=== PATIENT | female | born 1950 | race Caucasian/White ===

== ENCOUNTER 2019-11-18 14:01 | Observation (INO) ==
[2019-11-18 14:55] LABS: Bilirubin,Urine Negative (Negative); Blood,Urine Large (Negative); Clarity,Urine Cloudy (Clear); Color,Urine Red (Yellow); Glucose,Urine (UA) Normal (Normal); Ketones,Urine Negative (Negative); Leukocyte Esterase,Urine Large (Negative); Nitrite,Urine Negative (Negative); PH,Urine 5.5 pH Units (5.0-8.0); Protein,Urine 100 mg/dL (Neg-Trace); Specific Gravity,Urine 1.013 (1.010-1.025); Urobilinogen,Urine Normal (Normal)
[2019-11-18 14:57] LABS: Basophils % 0.6 %; Eosinophils # 0.2 K/mcL (0.0-0.6); Eosinophils % 4.6 %; Hematocrit 28.7 % (35.3-44.9); Hemoglobin 8.4 g/dL (11.5-15.4); Immature Granulocytes % 3.4 % (0-4); Lymphocytes # 0.6 K/mcL (0.6-4.6); Lymphocytes % 11.5 %; Mean Corpuscular HGB Conc 29.3 g/dL (31.6-35.5); Mean Platelet Volume 9.6 fL (9.4-12.4); Monocytes # 0.4 K/mcL (0.0-1.3); Monocytes % 7.6 %; Neutrophils # 3.8 K/mcL (1.6-8.9); Platelet Count 222 K/mcL (140-400); Red Cell Distribution Width 15.8 % (11.5-14.5); Segmented Neutrophils % 72.3 %; White Blood Count 5.2 K/mcL (4.3-11.1)
[2019-11-18 14:57] LABS: Squamous Epithelial Cell,Urine Moderate per lpf (None-Few); WBC,Urine TNTC per hpf (0-3)
[2019-11-18 14:59] LABS: Bacteria,Urine Moderate per hpf (None-Few); RBC,Urine TNTC per hpf (0-3)
[2019-11-18 15:08] LABS: INR 1.3; Prothrombin Time 15.1 Seconds (9.4-12.1)
[2019-11-18] MEDS ORDERED: Ondansetron 4 MG/2 ML VIAL IVP PRN (15:12)
[2019-11-18] MEDS ORDERED: Naloxone 0.4 MG/ML INJ IVP PRN ×2 (15:12→15:33)
[2019-11-18] MEDS ORDERED: 0.9 % Sodium Chloride 250 ML IVC PRN (15:21)
[2019-11-18] MEDS ORDERED: Heparin 1,000 UNITS/500 mL 500 ML ONE (15:24)
[2019-11-18 15:30] LABS: Calcium 9.7 mg/dL (8.6-10.3); Potassium 4.1 mEq/L (3.5-5.1)
[2019-11-18] MEDS ORDERED: 0.9 % Sodium Chloride 1,000 ML PRIME SCH (15:30)
[2019-11-18] MEDS ORDERED: *HR* Heparin 5,000 UNIT/ML VIAL ONE (15:34)
[2019-11-18 18:48] VITALS: BP 139/78
[2019-11-18 19:11] LABS: Hepatitis B Surface Antibody < 3.10 mIU/mL
[2019-11-18 19:21] LABS: Hepatitis B Surface Antigen Nonreactive (Nonreactive)
== END 2019-11-18 20:22 ==
LOC: EMEROOARM 14:01 → 2ANU 14:01 → CDU 14:01
PROVIDERS: ADMIT Pharmacist; ATTEND Pharmacist

== ENCOUNTER 2020-02-14 23:07 | Inpatient (IN) ==
[2020-02-14] MEDS ORDERED: 0.9 % Sodium Chloride 500 ML IVC ONE (23:23)
[2020-02-14 23:57] LABS: Basophils % 0.2 %; Eosinophils % 0.1 %; Hematocrit 37.7 % (35.3-44.9); Hemoglobin 11.7 g/dL (11.5-15.4); Immature Granulocytes % 0.9 % (0-4); Lymphocytes # 0.5 K/mcL (0.6-4.6); Mean Corpuscular Hemoglobin 29.3 pg (28.0-33.3); Mean Corpuscular Volume 94.5 fL (83.0-100.0); Mean Platelet Volume 10.2 fL (9.4-12.4); Monocytes # 0.4 K/mcL (0.0-1.3); Monocytes % 4.3 %; Neutrophils # 7.5 K/mcL (1.6-8.9); Platelet Count 153 K/mcL (140-400); Red Blood Count 3.99 M/mcL (3.82-4.97); Red Cell Distribution Width 17.1 % (11.5-14.5); Segmented Neutrophils % 88.5 %; White Blood Count 8.4 K/mcL (4.3-11.1)
[2020-02-15] LABS: INR 1.3; Prothrombin Time 15.1 Seconds (9.4-12.1)
[2020-02-15 00:03] LABS: Activated Partial Thrombo Time 35.6 Seconds (26.0-36.0)
[2020-02-15 00:21] LABS: Alanine Aminotransferase 13 Units/L (7-52); Albumin 3.4 g/dL (3.5-5.7); Alkaline Phosphatase 75 Units/L (34-104); Aspartate Amino Transferase 21 Units/L (13-39); BUN/Creatinine Ratio 10 (6-26); Bilirubin,Direct 0.2 mg/dL (0.0-0.2); Bilirubin,Indirect 0.8 mg/dL (0.0-1.0); Blood Urea Nitrogen 42 mg/dL (8-23); Calcium 10.3 mg/dL (8.6-10.3); Carbon Dioxide 25 mEq/L (23-29); Chloride 96 mEq/L (98-107); Globulin 3.4 g/dL (2.4-3.5); Glucose 206 mg/dL (70-105); Magnesium 2.1 mg/dL (1.6-2.6); Osmolality,Calculated 290 (280-300); Phosphorous 4.4 mg/dL (2.7-4.5); Potassium 4.6 mEq/L (3.5-5.1); Sodium 132 mEq/L (136-145); Total Protein 6.8 g/dL (6.4-8.9); Troponin I < 0.03 ng/mL (< 0.04); eGFR For African Americans 13 (> 60); eGFR For Non-African Americans 11 (> 60)
[2020-02-15] MEDS ORDERED: *HR* HYDROcodone/Acet 5/325 mg TABLET PO ONE (00:34)
[2020-02-15 00:45] LABS: ABG Base Excess 1 mEq/L (-2 to 3); ABG HCO3 26 mEq/L (21-27); ABG Oxygen Saturation 90 % (95-98); ABG PCO2 37 mmHg (35-45); ABG PH 7.44 pH Units (7.32-7.45); ABG PO2 57 mmHg (85-104); ABG TCO2 27 mEq/L (20-26)
[2020-02-15 00:58] LABS: Bilirubin,Urine Negative (Negative); Blood,Urine Large (Negative); Clarity,Urine Turbid (Clear); Color,Urine Yellow (Yellow); Glucose,Urine (UA) 100 mg/dL (Normal); Ketones,Urine Negative (Negative); Leukocyte Esterase,Urine Large (Negative); Nitrite,Urine Negative (Negative); PH,Urine 6.5 pH Units (5.0-8.0); Protein,Urine 100 mg/dL (Neg-Trace); Specific Gravity,Urine 1.018 (1.010-1.025); Urobilinogen,Urine Normal (Normal)
[2020-02-15 00:59] LABS: Bacteria,Urine Moderate per hpf (None-Few); RBC,Urine 30-50 per hpf (0-3); Squamous Epithelial Cell,Urine Many per lpf (None-Few); WBC,Urine TNTC per hpf (0-3)
[2020-02-15 01:09] LABS: Hyaline Casts,Urine Few per lpf (None-Few)
[2020-02-15] MEDS ORDERED: cefTRIAXone 1,000 MG in 0.9 % Sodium Chloride Mini Bag 100 ML IVPB ONE (01:13)
[2020-02-15] MEDS ORDERED: Naloxone 0.4 MG/ML INJ IVP PRN (03:46)
[2020-02-15] MEDS ORDERED: Ondansetron ODT 4 MG TAB.RAPDIS SL PRN (03:46)
[2020-02-15] MEDS ORDERED: Bisacodyl 10 MG RECTAL SUPPOSITORY RC PRN (03:48)
[2020-02-15] MEDS ORDERED: Dextrose Gel 15 GM/37.5 ML TUBE PO PRN ×2 (04:04)
[2020-02-15] MEDS ORDERED: D5% in Water 1,000 ML IVC PRN (04:04)
[2020-02-15] MEDS ORDERED: *HR* Dextrose 50 % in Water (Syg) 50 ML SYRINGE IVP PRN (04:04)
[2020-02-15] MEDS: *HR* OxyCODONE Immed Rel 5 MG TABLET PO PRN ×3 (04:31→20:48)
[2020-02-15] MEDS: Sennosides/Docusate Sodium TABLET PO SCH (04:31)
[2020-02-15 04:50] LABS: Basophils % 0.3 %; Eosinophils % 0.1 %; Hematocrit 35.4 % (35.3-44.9); Hemoglobin 10.8 g/dL (11.5-15.4); Immature Granulocytes % 1.1 % (0-4); Lymphocytes # 0.4 K/mcL (0.6-4.6); Lymphocytes % 5.5 %; Mean Corpuscular HGB Conc 30.5 g/dL (31.6-35.5); Mean Corpuscular Hemoglobin 28.9 pg (28.0-33.3); Mean Corpuscular Volume 94.7 fL (83.0-100.0); Mean Platelet Volume 10.6 fL (9.4-12.4); Monocytes # 0.5 K/mcL (0.0-1.3); Monocytes % 5.8 %; Platelet Count 130 K/mcL (140-400); Red Blood Count 3.74 M/mcL (3.82-4.97); Red Cell Distribution Width 17.1 % (11.5-14.5); Segmented Neutrophils % 87.2 %
[2020-02-15] MEDS ORDERED: Vancomycin 2,000 MG/520 ML IV.SOLN IVPB ONE (05:00)
[2020-02-15] MEDS ORDERED: Albuterol Neb 0.63 MG/3 ML VIAL IH PRN (05:00)
[2020-02-15 05:09] LABS: Calcium 9.9 mg/dL (8.6-10.3); Potassium 4.4 mEq/L (3.5-5.1)
[2020-02-15 08:25] LABS: Estimated Average Glucose 166 mg/dl
[2020-02-15 08:29] LABS: Hepatitis B Surface Antibody < 3.10 mIU/mL
[2020-02-15 08:40] LABS: Hepatitis B Surface Antigen Nonreactive (Nonreactive)
[2020-02-15] MEDS: Insulin LISPRO 300 UNITS/3 ML VIAL SQ SCH ×3 (08:48→17:11)
[2020-02-15] MEDS: Piperacillin/Tazobactam 3.375 GM in 0.9 % Sodium Chloride Mini Bag 100 ML IVPB SCH ×3 (08:48→23:40)
[2020-02-15] MEDS: Apixaban 5 MG TABLET PO SCH ×2 (08:50→20:16)
[2020-02-15] MEDS: Furosemide 40 MG TABLET PO SCH (08:50)
[2020-02-15] MEDS: Acetaminophen 325 MG TABLET PO PRN ×2 (09:04→17:23)
[2020-02-15 14:05] LABS: Acinetobacter baumannii by PCR Not Detected (Not Detect); Candida albicans by PCR Not Detected (Not Detect); Candida glabrata by PCR Not Detected (Not Detect); Candida krusei by PCR Not Detected (Not Detect); Candida parapsilosis by PCR Not Detected (Not Detect); Candida tropicalis by PCR Not Detected (Not Detect); Enterobacter cloacae Cmplx PCR Not Detected (Not Detect); Enterobacteriaceae by PCR Not Detected (Not Detect); Enterococcus by PCR Not Detected (Not Detect); Escherichia coli by PCR Not Detected (Not Detect); Klebsiella oxytoca by PCR Not Detected (Not Detect); Klebsiella pneumoniae by PCR Not Detected (Not Detect); Proteus by PCR Not Detected (Not Detect); Pseudomonas aeruginosa by PCR Not Detected (Not Detect); Serratia marcescens by PCR Not Detected (Not Detect); Staphylococcus aureus by PCR DETECTED (Not Detect); Streptococcus agalactiae(B)PCR Not Detected (Not Detect); Streptococcus by PCR Not Detected (Not Detect); Streptococcus pneumoniae PCR Not Detected (Not Detect); Streptococcus pyogenes (A) PCR Not Detected (Not Detect); mecA Methicillin-Resist Gene DETECTED (Not Detect)
[2020-02-15] MEDS: traZODone 50 MG TABLET PO SCH (20:16)
[2020-02-15] MEDS: Melatonin 3 MG TABLET PO SCH (20:16)
[2020-02-15] MEDS: Insulin DETEMIR 100 UNIT/ML X5UNITS SQ SCH (20:23)
[2020-02-16 02:01] LABS: Calcium 9.9 mg/dL (8.6-10.3); Potassium 4.6 mEq/L (3.5-5.1)
[2020-02-16] MEDS: Insulin LISPRO 300 UNITS/3 ML VIAL SQ SCH ×3 (08:00→17:30)
[2020-02-16] MEDS: *HR* OxyCODONE Immed Rel 5 MG TABLET PO PRN ×2 (09:20→17:24)
[2020-02-16] MEDS: Furosemide 40 MG TABLET PO SCH (09:20)
[2020-02-16] MEDS: Apixaban 5 MG TABLET PO SCH ×2 (09:20→21:35)
[2020-02-16] MEDS: Piperacillin/Tazobactam 3.375 GM in 0.9 % Sodium Chloride Mini Bag 100 ML IVPB SCH ×2 (09:20→17:26)
[2020-02-16] MEDS ORDERED: Perflutren Lipid Microsphere 1.3 ML in 0.9 % Sodium Chloride 8.7 ML IVP ONE (09:39)
[2020-02-16] MEDS ORDERED: 0.9 % Sodium Chloride 250 ML IVC ONE (09:59)
[2020-02-16] MEDS ORDERED: Albumin 25% 25gram/100mL 25 GM/100 ML IV.SOLN IVPB SCH (10:00)
[2020-02-16] MEDS ORDERED: Vancomycin 500 MG in 0.9 % Sodium Chloride Mini Bag 100 ML IVPB ONE ×2 (10:22→17:00)
[2020-02-16 10:27] LABS: Calcium 9.8 mg/dL (8.6-10.3); Potassium 5.1 mEq/L (3.5-5.1)
[2020-02-16] MEDS: Methyl Salicylate/Menthol 57 APPL/57 GM TUBE TP PRN ×2 (11:55→22:43)
[2020-02-16] MEDS: Acetaminophen 325 MG TABLET PO PRN ×2 (13:28→21:38)
[2020-02-16] MEDS ORDERED: *HR* HYDROmorphone (PF) 1 MG/ML SYRINGE IVP ONE (14:27)
[2020-02-16] MEDS: Melatonin 3 MG TABLET PO SCH (21:35)
[2020-02-16] MEDS: traZODone 50 MG TABLET PO SCH (21:35)
[2020-02-16] MEDS: Insulin DETEMIR 100 UNIT/ML X5UNITS SQ SCH (21:43)
[2020-02-16] MEDS: Nystatin POWDER 30 GM BOTTLE TP SCH (22:43)
[2020-02-17] MEDS: Piperacillin/Tazobactam 3.375 GM in 0.9 % Sodium Chloride Mini Bag 100 ML IVPB SCH ×2 (00:28→08:05)
[2020-02-17] MEDS: *HR* OxyCODONE Immed Rel 5 MG TABLET PO PRN ×2 (01:34→16:01)
[2020-02-17 02:29] LABS: Hematocrit 31.7 % (35.3-44.9); Hemoglobin 9.8 g/dL (11.5-15.4); Mean Corpuscular HGB Conc 30.9 g/dL (31.6-35.5); Mean Corpuscular Hemoglobin 29.3 pg (28.0-33.3); Mean Corpuscular Volume 94.9 fL (83.0-100.0); Mean Platelet Volume 10.9 fL (9.4-12.4); Platelet Count 118 K/mcL (140-400); Red Blood Count 3.34 M/mcL (3.82-4.97); Red Cell Distribution Width 16.5 % (11.5-14.5); White Blood Count 6.3 K/mcL (4.3-11.1)
[2020-02-17 02:38] LABS: Calcium 9.3 mg/dL (8.6-10.3); Potassium 4.3 mEq/L (3.5-5.1)
[2020-02-17 06:41] LABS: Acinetobacter baumannii by PCR Not Detected (Not Detect); Candida albicans by PCR Not Detected (Not Detect); Candida glabrata by PCR Not Detected (Not Detect); Candida krusei by PCR Not Detected (Not Detect); Candida parapsilosis by PCR Not Detected (Not Detect); Candida tropicalis by PCR Not Detected (Not Detect); Enterobacter cloacae Cmplx PCR Not Detected (Not Detect); Enterobacteriaceae by PCR Not Detected (Not Detect); Enterococcus by PCR Not Detected (Not Detect); Escherichia coli by PCR Not Detected (Not Detect); Klebsiella oxytoca by PCR Not Detected (Not Detect); Klebsiella pneumoniae by PCR Not Detected (Not Detect); Proteus by PCR Not Detected (Not Detect); Pseudomonas aeruginosa by PCR Not Detected (Not Detect); Serratia marcescens by PCR Not Detected (Not Detect); Staphylococcus aureus by PCR DETECTED (Not Detect); Streptococcus agalactiae(B)PCR Not Detected (Not Detect); Streptococcus by PCR Not Detected (Not Detect); Streptococcus pneumoniae PCR Not Detected (Not Detect); Streptococcus pyogenes (A) PCR Not Detected (Not Detect); blaKPC Carbapenem-Resist Gene Not Detected (Not Detect); mecA Methicillin-Resist Gene DETECTED (Not Detect); vanA/B Vancomycin-Resist Genes Not Detected (Not Detect)
[2020-02-17] MEDS ORDERED: *HR* Heparin 10,000 UNIT/10 ML VIAL IV PRN (07:30)
[2020-02-17] MEDS ORDERED: 0.9 % Sodium Chloride 250 ML IVC PRN (07:30)
[2020-02-17] MEDS ORDERED: 0.9 % Sodium Chloride 1,000 ML PRIME SCH (07:30)
[2020-02-17] MEDS ORDERED: 0.9 % Sodium Chloride 1,000 ML ONE (07:33)
[2020-02-17] MEDS: Insulin LISPRO 300 UNITS/3 ML VIAL SQ SCH ×3 (08:01→16:45)
[2020-02-17] MEDS: Nystatin POWDER 30 GM BOTTLE TP SCH ×2 (08:05→20:54)
[2020-02-17] MEDS: Apixaban 5 MG TABLET PO SCH (08:08)
[2020-02-17] MEDS: Acetaminophen 325 MG TABLET PO PRN ×2 (08:13→19:24)
[2020-02-17] MEDS ORDERED: levoFLOXacin 500 MG TABLET PO ONE (13:28)
[2020-02-17 16:02] LABS: Source,Synovial Fluid Right knee
[2020-02-17] MEDS: *HR* Heparin 5,000 UNIT/ML VIAL SQ SCH ×2 (16:02→20:50)
[2020-02-17] MEDS: traZODone 50 MG TABLET PO SCH (20:50)
[2020-02-17] MEDS: Melatonin 3 MG TABLET PO SCH (20:50)
[2020-02-17] MEDS: Insulin DETEMIR 100 UNIT/ML X5UNITS SQ SCH (20:53)
[2020-02-17 20:59] LABS: Source,Synovial Fluid RT KNEE
[2020-02-17 21:01] LABS: Appearance,Synovial Fluid Hazy (Clear-Hazy); Color,Synovial Fluid Straw (Straw)
[2020-02-17 21:11] LABS: Appearance,Synovial Fluid Cloudy (Clear-Hazy); Color,Synovial Fluid Straw (Straw)
[2020-02-17] MEDS ORDERED: *HR* OxyCODONE Immed Rel 5 MG TABLET PO ONE (21:48)
[2020-02-18] MEDS: *HR* Heparin 5,000 UNIT/ML VIAL SQ SCH ×3 (05:41→22:53)
[2020-02-18] MEDS: Sennosides/Docusate Sodium TABLET PO SCH (05:42)
[2020-02-18] MEDS: *HR* OxyCODONE Immed Rel 5 MG TABLET PO PRN ×2 (08:18→17:07)
[2020-02-18] MEDS: Insulin LISPRO 300 UNITS/3 ML VIAL SQ SCH ×3 (08:19→17:08)
[2020-02-18] MEDS: Nystatin POWDER 30 GM BOTTLE TP SCH ×2 (08:20→22:54)
[2020-02-18 09:08] LABS: Basophils % 0.6 %; Eosinophils # 0.2 K/mcL (0.0-0.6); Eosinophils % 2.8 %; Hemoglobin 10.2 g/dL (11.5-15.4); Immature Granulocytes % 0.9 % (0-4); Lymphocytes % 18.5 %; Mean Corpuscular HGB Conc 30.9 g/dL (31.6-35.5); Mean Corpuscular Volume 93.8 fL (83.0-100.0); Mean Platelet Volume 10.6 fL (9.4-12.4); Monocytes # 0.7 K/mcL (0.0-1.3); Monocytes % 13.2 %; Neutrophils # 3.5 K/mcL (1.6-8.9); Platelet Count 149 K/mcL (140-400); Red Blood Count 3.52 M/mcL (3.82-4.97); Red Cell Distribution Width 16.2 % (11.5-14.5); White Blood Count 5.5 K/mcL (4.3-11.1)
[2020-02-18 09:15] LABS: Calcium 9.8 mg/dL (8.6-10.3); Potassium 4.2 mEq/L (3.5-5.1)
[2020-02-18] MEDS ORDERED: 0.9 % Sodium Chloride 250 ML IVC PRN (11:05)
[2020-02-18] MEDS ORDERED: *HR* Heparin 10,000 UNIT/10 ML VIAL IV PRN (11:05)
[2020-02-18] MEDS: Fluticasone Propionate Nasal 50 MCG/SPRAY BOTTLE NS SCH (17:07)
[2020-02-18] MEDS ORDERED: Isovue-370 500 ML BOTTLE IVP ONE (20:41)
[2020-02-18] MEDS ORDERED: Polymyxn-B/Trimeth Opth Drops 10 ML BOTTLE RIGHT EYE SCH (21:00)
[2020-02-18] MEDS: Insulin DETEMIR 100 UNIT/ML X5UNITS SQ SCH (22:48)
[2020-02-18] MEDS: Acetaminophen 325 MG TABLET PO PRN (22:51)
[2020-02-18] MEDS: Melatonin 3 MG TABLET PO SCH (22:52)
[2020-02-18] MEDS: traZODone 50 MG TABLET PO SCH (22:53)
[2020-02-19] MEDS: *HR* OxyCODONE Immed Rel 5 MG TABLET PO PRN ×3 (01:04→21:33)
[2020-02-19 03:10] LABS: Hematocrit 34.8 % (35.3-44.9); Mean Corpuscular HGB Conc 31.6 g/dL (31.6-35.5); Mean Corpuscular Hemoglobin 29.5 pg (28.0-33.3); Mean Corpuscular Volume 93.3 fL (83.0-100.0); Mean Platelet Volume 10.3 fL (9.4-12.4); Platelet Count 156 K/mcL (140-400); Red Blood Count 3.73 M/mcL (3.82-4.97); Red Cell Distribution Width 16.1 % (11.5-14.5); White Blood Count 6.2 K/mcL (4.3-11.1)
[2020-02-19 03:19] LABS: Potassium 4.1 mEq/L (3.5-5.1)
[2020-02-19] MEDS: *HR* Heparin 5,000 UNIT/ML VIAL SQ SCH ×3 (06:19→21:40)
[2020-02-19] MEDS: Acetaminophen 325 MG TABLET PO PRN ×2 (06:20→15:01)
[2020-02-19] MEDS: Fluticasone Propionate Nasal 50 MCG/SPRAY BOTTLE NS SCH (08:50)
[2020-02-19] MEDS: Insulin LISPRO 300 UNITS/3 ML VIAL SQ SCH ×2 (08:52→14:55)
[2020-02-19] MEDS: Methyl Salicylate/Menthol 57 APPL/57 GM TUBE TP PRN ×2 (08:52→21:35)
[2020-02-19] MEDS: Nystatin POWDER 30 GM BOTTLE TP SCH ×2 (08:53→21:35)
[2020-02-19] MEDS ORDERED: levoFLOXacin 250 MG TABLET PO SCH (13:30)
[2020-02-19] MEDS: traZODone 50 MG TABLET PO SCH (21:33)
[2020-02-19] MEDS: Melatonin 3 MG TABLET PO SCH (21:34)
[2020-02-19] MEDS: Insulin DETEMIR 100 UNIT/ML X5UNITS SQ SCH (21:43)
[2020-02-20 00:59] VITALS: BP 109/60
[2020-02-20 01:49] LABS: Hematocrit 33.5 % (35.3-44.9); Hemoglobin 10.2 g/dL (11.5-15.4); Mean Corpuscular HGB Conc 30.4 g/dL (31.6-35.5); Mean Corpuscular Hemoglobin 28.6 pg (28.0-33.3); Mean Corpuscular Volume 93.8 fL (83.0-100.0); Mean Platelet Volume 10.3 fL (9.4-12.4); Platelet Count 199 K/mcL (140-400); Red Blood Count 3.57 M/mcL (3.82-4.97); Red Cell Distribution Width 16.2 % (11.5-14.5); White Blood Count 5.6 K/mcL (4.3-11.1)
[2020-02-20 01:51] LABS: Calcium 10.3 mg/dL (8.6-10.3); Potassium 4.2 mEq/L (3.5-5.1)
[2020-02-20] MEDS ORDERED: Aminoglycoside Consult 1 EACH MC ONE (02:39)
== END 2020-02-20 02:40 | disposition short-term general hospital (02) | DRG 871 ==
LOC: 2ANU 23:07 → EMEROOARM 23:07 → SUATTDRO 02-15 02:08 → 2ANU 02-15 02:33 → SUATTDRO 02-16 14:39
PROVIDERS: ADMIT Internal Medicine; ATTEND Internal Medicine

== ENCOUNTER 2020-08-08 15:42 | Inpatient (IN) ==
[2020-08-08] MEDS ORDERED: 0.9 % Sodium Chloride 1,000 ML IVC ONE (16:05)
[2020-08-08 16:32] LABS: Amorphous Sediment,Urine Few per hpf (None-Few); Bacteria,Urine Moderate per hpf (None-Few); Bilirubin,Urine Negative (Negative); Blood,Urine Moderate (Negative); Clarity,Urine Ex.Turbid (Clear); Color,Urine Light-Orange (Yellow); Glucose,Urine (UA) 50 mg/dL (Normal); Ketones,Urine Negative (Negative); Leukocyte Esterase,Urine Large (Negative); Mucus,Urine Few per lpf (None-Few); Nitrite,Urine Negative (Negative); PH,Urine 8.5 pH Units (5.0-8.0); Protein,Urine >=600 mg/dL (Neg-Trace); RBC,Urine TNTC per hpf (0-3); Renal Epithelial Cells,Urine Few per hpf (None-Few); Specific Gravity,Urine 1.017 (1.010-1.025); Squamous Epithelial Cell,Urine Few per hpf (None-Few); Transitional Epi Cells,Urine Few per hpf (None-Few); Urobilinogen,Urine Normal (Normal); WBC,Urine 30-50 per hpf (0-3)
[2020-08-08 16:44] LABS: Basophils # 0.1 K/mcL (0.0-0.2); Basophils % 0.7 %; Eosinophils # 0.4 K/mcL (0.0-0.6); Eosinophils % 4.6 %; Hematocrit 30.9 % (35.3-44.9); Hemoglobin 9.5 g/dL (11.5-15.4); Immature Granulocytes % 0.8 % (0-4); Lymphocytes # 1.4 K/mcL (0.6-4.6); Lymphocytes % 16.1 %; Mean Corpuscular HGB Conc 30.7 g/dL (31.6-35.5); Mean Corpuscular Volume 97.5 fL (83.0-100.0); Mean Platelet Volume 10.9 fL (9.4-12.4); Monocytes # 0.6 K/mcL (0.0-1.3); Monocytes % 6.7 %; Neutrophils # 6.3 K/mcL (1.6-8.9); Platelet Count 236 K/mcL (140-400); Red Blood Count 3.17 M/mcL (3.82-4.97); Red Cell Distribution Width 16.7 % (11.5-14.5); Segmented Neutrophils % 71.1 %; White Blood Count 8.9 K/mcL (4.3-11.1)
[2020-08-08] MEDS ORDERED: cefTRIAXone 1,000 MG in Water for inj. (sterile) 10 ML IVP ONE (16:47)
[2020-08-08] MEDS ORDERED: Cefepime HCl 2,000 MG in Water for inj. (sterile) 20 ML IVP STA (16:48)
[2020-08-08 17:03] LABS: Alanine Aminotransferase 25 Units/L (7-52); Albumin 3.4 g/dL (3.5-5.7); Albumin/Globulin Ratio 1.1 (1.1-2.2); Alkaline Phosphatase 100 Units/L (34-104); Aspartate Amino Transferase 20 Units/L (13-39); BUN/Creatinine Ratio 11 (6-26); Bilirubin,Total 0.6 mg/dL (0.3-1.0); Blood Urea Nitrogen 29 mg/dL (8-23); Calcium 8.7 mg/dL (8.6-10.3); Carbon Dioxide 26 mEq/L (23-29); Chloride 99 mEq/L (98-107); Glucose 180 mg/dL (70-105); Osmolality,Calculated 292 (280-300); Potassium 3.9 mEq/L (3.5-5.1); Sodium 136 mEq/L (136-145); Total Protein 6.4 g/dL (6.4-8.9); Troponin I < 0.03 ng/mL (< 0.04); eGFR For African Americans 22 (> 60); eGFR For Non-African Americans 18 (> 60)
[2020-08-08] MEDS ORDERED: *HR* OxyCODONE/APAP 5/325 TABLET PO ONE (17:26)
[2020-08-08] MEDS ORDERED: Naloxone 0.4 MG/ML INJ IVP PRN (22:12)
[2020-08-08] MEDS ORDERED: Acetaminophen 325 MG TABLET PO PRN (22:12)
[2020-08-08] MEDS ORDERED: Ondansetron ODT 4 MG TAB.RAPDIS SL PRN (22:12)
[2020-08-08] MEDS ORDERED: Dextrose Gel 15 GM/37.5 ML TUBE PO PRN ×2 (22:27)
[2020-08-08] MEDS ORDERED: D5% in Water 1,000 ML IVC PRN (22:27)
[2020-08-08] MEDS ORDERED: *HR* Dextrose 50 % in Water (Vial) 50 ML VIAL IVP PRN (22:27)
[2020-08-09] MEDS ORDERED: Vancomycin 2,000 MG/520 ML IV.SOLN IVPB ONE
[2020-08-09] MEDS ORDERED: Bisacodyl 10 MG RECTAL SUPPOSITORY RC PRN (00:02)
[2020-08-09] MEDS: Insulin LISPRO 300 UNITS/3 ML VIAL SQ SCH ×4 (00:20→16:29)
[2020-08-09] MEDS: *HR* OxyCODONE/APAP 10/325 TABLET PO SCH ×3 (08:00→20:02)
[2020-08-09] MEDS: Furosemide 40 MG TABLET PO SCH (08:00)
[2020-08-09 09:19] LABS: Basophils # 0.1 K/mcL (0.0-0.2); Eosinophils # 0.4 K/mcL (0.0-0.6); Eosinophils % 5.6 %; Hematocrit 28.3 % (35.3-44.9); Hemoglobin 8.8 g/dL (11.5-15.4); Lymphocytes # 1.4 K/mcL (0.6-4.6); Lymphocytes % 20.1 %; Mean Corpuscular HGB Conc 31.1 g/dL (31.6-35.5); Mean Corpuscular Hemoglobin 30.6 pg (28.0-33.3); Mean Corpuscular Volume 98.3 fL (83.0-100.0); Mean Platelet Volume 9.9 fL (9.4-12.4); Monocytes # 0.5 K/mcL (0.0-1.3); Neutrophils # 4.3 K/mcL (1.6-8.9); Platelet Count 194 K/mcL (140-400); Red Blood Count 2.88 M/mcL (3.82-4.97); Red Cell Distribution Width 16.7 % (11.5-14.5); Segmented Neutrophils % 64.3 %; White Blood Count 6.8 K/mcL (4.3-11.1)
[2020-08-09] MEDS: Apixaban 5 MG TABLET PO SCH ×2 (09:22→20:01)
[2020-08-09] MEDS: Renal Vitamin 1 CAP CAPSULE PO SCH (09:22)
[2020-08-09] MEDS: Fluticasone Propionate Nasal 50 MCG/SPRAY BOTTLE NS SCH (09:23)
[2020-08-09 09:30] LABS: INR 1.4; Prothrombin Time 15.6 Seconds (9.4-12.1)
[2020-08-09 09:39] LABS: Calcium 10.2 mg/dL (8.6-10.3); Potassium 4.2 mEq/L (3.5-5.1)
[2020-08-09] MEDS ORDERED: polyethylene glycoL 3350 17 GM POWD.PACK PO PRN (10:00)
[2020-08-09] MEDS ORDERED: *HR* Metoprolol 5 MG/5 ML VIAL IVP PRN (10:02)
[2020-08-09] MEDS: Simethicone 80 MG TAB.CHEW PO SCH ×3 (11:25→20:01)
[2020-08-09 13:02] LABS: Hepatitis B Surface Antibody < 3.10 mIU/mL
[2020-08-09 13:12] LABS: Hepatitis B Surface Antigen Nonreactive (Nonreactive)
[2020-08-09] MEDS ORDERED: Cefepime HCl 2,000 MG in Water for inj. (sterile) 20 ML IVP SCH (15:00)
[2020-08-09] MEDS: Melatonin 3 MG TABLET PO SCH (20:02)
[2020-08-09] MEDS: traZODone 50 MG TABLET PO SCH (20:02)
[2020-08-10 06:12] LABS: Calcium 10.7 mg/dL (8.6-10.3); Potassium 4.2 mEq/L (3.5-5.1)
[2020-08-10] MEDS ORDERED: 0.9 % Sodium Chloride 250 ML IVC PRN (07:22)
[2020-08-10] MEDS ORDERED: *HR* Heparin 10,000 UNIT/10 ML VIAL IV PRN ×2 (07:22)
[2020-08-10] MEDS ORDERED: 0.9 % Sodium Chloride 1,000 ML PRIME SCH (07:30)
[2020-08-10] MEDS: Insulin LISPRO 300 UNITS/3 ML VIAL SQ SCH ×3 (08:42→18:11)
[2020-08-10] MEDS: Simethicone 80 MG TAB.CHEW PO SCH ×4 (09:00→21:10)
[2020-08-10] MEDS: Fluticasone Propionate Nasal 50 MCG/SPRAY BOTTLE NS SCH (10:42)
[2020-08-10] MEDS: Sennosides/Docusate Sodium TABLET PO SCH (13:03)
[2020-08-10] MEDS: Apixaban 5 MG TABLET PO SCH ×2 (13:04→21:10)
[2020-08-10] MEDS: Furosemide 40 MG TABLET PO SCH (13:05)
[2020-08-10] MEDS: *HR* OxyCODONE/APAP 10/325 TABLET PO SCH ×2 (13:05→21:33)
[2020-08-10] MEDS: Renal Vitamin 1 CAP CAPSULE PO SCH (13:06)
[2020-08-10] MEDS: Melatonin 3 MG TABLET PO SCH (21:10)
[2020-08-10] MEDS: traZODone 50 MG TABLET PO SCH (21:11)
[2020-08-11 01:46] LABS: Potassium 4.1 mEq/L (3.5-5.1)
[2020-08-11 07:54] VITALS: BP 105/61
[2020-08-11] MEDS: Simethicone 80 MG TAB.CHEW PO SCH (08:46)
[2020-08-11] MEDS: Sennosides/Docusate Sodium TABLET PO SCH (08:46)
[2020-08-11] MEDS: Renal Vitamin 1 CAP CAPSULE PO SCH (08:47)
[2020-08-11] MEDS: Apixaban 5 MG TABLET PO SCH (08:47)
[2020-08-11] MEDS: Insulin LISPRO 300 UNITS/3 ML VIAL SQ SCH ×2 (08:47→13:17)
[2020-08-11] MEDS: Furosemide 40 MG TABLET PO SCH (08:49)
[2020-08-11] MEDS: *HR* OxyCODONE/APAP 10/325 TABLET PO SCH (08:49)
== END 2020-08-11 15:56 | DRG 177 ==
LOC: EMEROOARM 15:42 → CDU 15:42 → SUATTDRO 21:55 → CDU 22:07 → 2NENU 08-09 18:11
PROVIDERS: ADMIT Internal Medicine; ATTEND Student in an Organized Health Care Education/Training Program

== ENCOUNTER 2020-10-22 09:49 | Inpatient (IN) ==
[2020-10-22] MEDS ORDERED: 0.9 % Sodium Chloride 500 ML IVC ONE ×2 (10:36→14:00)
[2020-10-22] MEDS ORDERED: Isovue-370 500 ML BOTTLE IVP ONE (10:37)
[2020-10-22 11:32] LABS: Basophils % 0.1 %; Eosinophils % 0.3 %; Hematocrit 30.7 % (35.3-44.9); Hemoglobin 9.3 g/dL (11.5-15.4); Lymphocytes # 0.6 K/mcL (0.6-4.6); Lymphocytes % 4.6 %; Mean Corpuscular HGB Conc 30.3 g/dL (31.6-35.5); Mean Corpuscular Hemoglobin 28.3 pg (28.0-33.3); Mean Corpuscular Volume 93.3 fL (83.0-100.0); Mean Platelet Volume 10.3 fL (9.4-12.4); Monocytes # 0.5 K/mcL (0.0-1.3); Monocytes % 4.4 %; Neutrophils # 10.7 K/mcL (1.6-8.9); Platelet Count 216 K/mcL (140-400); Red Blood Count 3.29 M/mcL (3.82-4.97); Red Cell Distribution Width 15.2 % (11.5-14.5); Segmented Neutrophils % 89.6 %; White Blood Count 11.9 K/mcL (4.3-11.1)
[2020-10-22 11:44] LABS: INR 2.5; Prothrombin Time 28.3 Seconds (9.4-12.1)
[2020-10-22 11:47] LABS: Activated Partial Thrombo Time 33.7 Seconds (26.0-36.0)
[2020-10-22] MEDS ORDERED: Piperacillin/Tazobactam 3.375 GM in Water for inj. (sterile) 20 ML IVP ONE (12:08)
[2020-10-22 12:41] LABS: Albumin 2.7 g/dL (3.5-5.7); Albumin/Globulin Ratio 0.9 (1.1-2.2); Bilirubin,Direct 0.3 mg/dL (0.0-0.2); Bilirubin,Indirect 0.3 mg/dL (0.0-1.0); Bilirubin,Total 0.6 mg/dL (0.3-1.0); Globulin 3.1 g/dL (2.4-3.5); Magnesium 1.9 mg/dL (1.6-2.6); Potassium 5.7 mEq/L (3.5-5.1); Total Protein 5.8 g/dL (6.4-8.9); Troponin I 7.96 ng/mL (< 0.04)
[2020-10-22] MEDS ORDERED: *HR* Dextrose 50 % in Water (Vial) 50 ML VIAL ONE (12:50)
[2020-10-22] MEDS ORDERED: *HR* Dextrose 50 % in Water (Vial) 50 ML VIAL IVP ONE ×2 (12:53→13:10)
[2020-10-22 13:18] LABS: Bilirubin,Urine Negative (Negative); Blood,Urine Large (Negative); Glucose,Urine (UA) Normal (Normal); Ketones,Urine Negative (Negative); Leukocyte Esterase,Urine Moderate (Negative); Nitrite,Urine Negative (Negative); PH,Urine 8.5 pH Units (5.0-8.0); Protein,Urine >=600 mg/dL (Neg-Trace); Specific Gravity,Urine 1.013 (1.010-1.025); Urobilinogen,Urine Normal (Normal)
[2020-10-22 13:33] LABS: Clarity,Urine Turbid (Clear); Color,Urine Dark-Brown (Yellow)
[2020-10-22] MEDS: 0.9 % Sodium Chloride 1,000 ML IVC SCH ×2 (14:18→23:25)
[2020-10-22] MEDS: D5% in 0.45% NACL 1,000 ML IVC SCH (14:21)
[2020-10-22] MEDS ORDERED: Aspirin 81 MG TAB.CHEW PO ONE (14:50)
[2020-10-22] MEDS: Norepinephrine 4 MG/254 ML IV.SOLN IVC SCH (15:01)
[2020-10-22] MEDS ORDERED: 0.9 % Sodium Chloride 500 ML ONE (15:07)
[2020-10-22] MEDS ORDERED: *HR* Alteplase (Cathflo) 2 MG VIAL IVP PRN (15:19)
[2020-10-22] MEDS ORDERED: *HR* Heparin 5,000 UNIT/ML VIAL HE PRN (15:19)
[2020-10-22] MEDS ORDERED: 0.9 % Sodium Chloride 1,000 ML PRIME ONE ×2 (15:19)
[2020-10-22] MEDS ORDERED: 0.9 % Sodium Chloride 1,000 ML PRIME SCH (15:30)
[2020-10-22] MEDS ORDERED: *HR* Heparin 5,000 UNIT/ML VIAL IVP PRN ×2 (15:37)
[2020-10-22] MEDS ORDERED: *HR* Heparin 5,000 UNIT/ML VIAL IVP ONE (15:37)
[2020-10-22] MEDS ORDERED: Heparin 25,000UNIT/250ML 1/2NS 25,000 UNIT/250 ML IV.SOLN IVC SCH (15:45)
[2020-10-22] MEDS ORDERED: Isovue-300 150 ML INFUS..BTL IVP ONE (15:51)
[2020-10-22] MEDS ORDERED: Naloxone 0.4 MG/ML INJ IVP PRN (16:24)
[2020-10-22] MEDS ORDERED: *HR* HYDROcodone/Acet 5/325 mg TABLET PO PRN (16:24)
[2020-10-22] MEDS ORDERED: Acetaminophen 325 MG TABLET PO PRN (16:24)
[2020-10-22] MEDS ORDERED: Vancomycin 2,000 MG/520 ML IV.SOLN IVPB ONE (16:47)
[2020-10-22] MEDS: Heparin 25,000UNIT/250ML 1/2NS 25,000 UNIT/250 ML IV.SOLN IVC SCH (17:29)
[2020-10-22] MEDS: Phenylephrine 10 MG in 0.9 % Sodium Chloride 250 ML IVC SCH ×2 (20:30→23:00)
[2020-10-22] MEDS: PrismaSATE BGK 4/2.5 5,000 ML CRRT SCH ×2 (22:00)
[2020-10-23] MEDS ORDERED: *HR* FentaNYL (PF) 100 MCG/2 ML VIAL IVP ONE ×2 (00:03→05:18)
[2020-10-23] MEDS: D5% in 0.45% NACL 1,000 ML IVC SCH ×3 (01:00→18:11)
[2020-10-23] MEDS: PrismaSATE BGK 4/2.5 5,000 ML CRRT SCH ×14 (01:15→22:05)
[2020-10-23] MEDS: Phenylephrine 10 MG in 0.9 % Sodium Chloride 250 ML IVC SCH (02:00)
[2020-10-23 04:44] LABS: Basophils % 0.1 %; Eosinophils % 0.1 %; Hemoglobin 8.8 g/dL (11.5-15.4); Immature Granulocytes % 1.8 % (0-4); Lymphocytes # 0.5 K/mcL (0.6-4.6); Lymphocytes % 3.1 %; Mean Corpuscular HGB Conc 31.4 g/dL (31.6-35.5); Mean Corpuscular Hemoglobin 28.7 pg (28.0-33.3); Mean Corpuscular Volume 91.2 fL (83.0-100.0); Mean Platelet Volume 10.4 fL (9.4-12.4); Monocytes # 0.8 K/mcL (0.0-1.3); Platelet Count 228 K/mcL (140-400); Red Blood Count 3.07 M/mcL (3.82-4.97); Red Cell Distribution Width 15.2 % (11.5-14.5); Segmented Neutrophils % 89.9 %; White Blood Count 15.4 K/mcL (4.3-11.1)
[2020-10-23 04:52] LABS: VBG Ionized Calcium 1.07 mmol/L (1.15-1.35)
[2020-10-23 04:55] LABS: INR 2.1; Prothrombin Time 23.8 Seconds (9.4-12.1)
[2020-10-23 04:59] LABS: Activated Partial Thrombo Time 103.2 Seconds (26.0-36.0)
[2020-10-23 05:09] LABS: Albumin 2.8 g/dL (3.5-5.7); Albumin/Globulin Ratio 0.8 (1.1-2.2); Bilirubin,Total 0.6 mg/dL (0.3-1.0); Calcium 8.9 mg/dL (8.6-10.3); Globulin 3.6 g/dL (2.4-3.5); Magnesium 1.9 mg/dL (1.6-2.6); Phosphorous 5.8 mg/dL (2.7-4.5); Total Protein 6.4 g/dL (6.4-8.9); Troponin I 7.48 ng/mL (< 0.04)
[2020-10-23 05:12] LABS: Neutrophils # 13.8 K/mcL (1.6-8.9)
[2020-10-23] MEDS ORDERED: *HR* Metoprolol 5 MG/5 ML VIAL IVP ONE (05:18)
[2020-10-23] MEDS ORDERED: Calcium Gluconate 1gm/50mL 1 GM/50 ML BAG IVPB PRN (06:57)
[2020-10-23 07:13] LABS: Anisocytosis 1+ (Not Present); Platelet Estimate Normal (Normal)
[2020-10-23] MEDS ORDERED: Potassium Chloride 40 MEQ/200 ML BAG IVPB PRN (07:45)
[2020-10-23] MEDS ORDERED: Perflutren Lipid Microsphere 1.3 ML in 0.9 % Sodium Chloride 8.7 ML IVP PRN (07:51)
[2020-10-23] MEDS ORDERED: Piperacillin/Tazobactam 3.375 GM in 0.9 % Sodium Chloride Mini Bag 100 ML IVPB SCH ×2 (08:00)
[2020-10-23] MEDS ORDERED: polyethylene glycoL 3350 17 GM POWD.PACK PO PRN (08:39)
[2020-10-23] MEDS ORDERED: Bisacodyl 10 MG RECTAL SUPPOSITORY RC PRN (08:39)
[2020-10-23] MEDS ORDERED: Acetaminophen 325 MG TABLET PO PRN (08:39)
[2020-10-23] MEDS ORDERED: Ondansetron ODT 4 MG TAB.RAPDIS PO PRN (08:39)
[2020-10-23] MEDS ORDERED: Dextrose Gel 15 GM/37.5 ML TUBE PO PRN ×2 (11:04)
[2020-10-23] MEDS ORDERED: D5% in Water 1,000 ML IVC PRN (11:04)
[2020-10-23] MEDS ORDERED: *HR* Dextrose 50 % in Water (Vial) 50 ML VIAL IVP PRN (11:04)
[2020-10-23] MEDS ORDERED: Amiodarone Premix 150 MG/100 ML BAG IVPB ONE (11:16)
[2020-10-23] MEDS ORDERED: Amiodarone Premix 360 MG/200 ML BAG IVC ONE (11:16)
[2020-10-23] MEDS: Sennosides/Docusate Sodium TABLET PO SCH (11:27)
[2020-10-23] MEDS: Renal Vitamin 1 CAP CAPSULE PO SCH (11:27)
[2020-10-23] MEDS: Fluticasone Propionate Nasal 50 MCG/SPRAY BOTTLE NS SCH (11:53)
[2020-10-23] MEDS: Insulin LISPRO 300 UNITS/3 ML VIAL SUBQ SCH ×3 (12:00→20:11)
[2020-10-23] MEDS: Norepinephrine 4 MG/254 ML IV.SOLN IVC SCH (12:24)
[2020-10-23] MEDS: Piperacillin/Tazobactam 3.375 GM in 0.9 % Sodium Chloride Mini Bag 100 ML IVPB SCH (15:54)
[2020-10-23] MEDS: Heparin 25,000UNIT/250ML 1/2NS 25,000 UNIT/250 ML IV.SOLN IVC SCH (15:54)
[2020-10-23] MEDS: Amiodarone Premix 360 MG/200 ML BAG IVC SCH (18:44)
[2020-10-23] MEDS: Melatonin 3 MG TABLET PO SCH (20:03)
[2020-10-23] MEDS: rOPINIRole 0.25 MG TABLET PO SCH (20:08)
[2020-10-24] MEDS: Piperacillin/Tazobactam 3.375 GM in 0.9 % Sodium Chloride Mini Bag 100 ML IVPB SCH ×4 (00:25→23:30)
[2020-10-24] MEDS: PrismaSATE BGK 4/2.5 5,000 ML CRRT SCH ×6 (01:30→07:50)
[2020-10-24 04:38] LABS: Basophils % 0.1 %; Hematocrit 25.2 % (35.3-44.9); Hemoglobin 7.7 g/dL (11.5-15.4); Immature Granulocytes % 1.6 % (0-4); Lymphocytes # 0.7 K/mcL (0.6-4.6); Mean Corpuscular HGB Conc 30.6 g/dL (31.6-35.5); Mean Corpuscular Volume 91.6 fL (83.0-100.0); Monocytes # 0.6 K/mcL (0.0-1.3); Monocytes % 5.6 %; Platelet Count 202 K/mcL (140-400); Red Blood Count 2.75 M/mcL (3.82-4.97); Red Cell Distribution Width 15.6 % (11.5-14.5); Segmented Neutrophils % 86.7 %; White Blood Count 11.5 K/mcL (4.3-11.1)
[2020-10-24 04:40] LABS: VBG Ionized Calcium 1.29 mmol/L (1.15-1.35)
[2020-10-24 04:58] LABS: Calcium 9.6 mg/dL (8.6-10.3); Magnesium 2.3 mg/dL (1.6-2.6); Potassium 4.3 mEq/L (3.5-5.1)
[2020-10-24] MEDS: Amiodarone Premix 360 MG/200 ML BAG IVC SCH ×2 (06:29→18:00)
[2020-10-24] MEDS: D5% in 0.45% NACL 1,000 ML IVC SCH ×2 (06:50→16:48)
[2020-10-24] MEDS: Sennosides/Docusate Sodium TABLET PO SCH (07:40)
[2020-10-24] MEDS: Renal Vitamin 1 CAP CAPSULE PO SCH (07:40)
[2020-10-24] MEDS: Fluticasone Propionate Nasal 50 MCG/SPRAY BOTTLE NS SCH (08:00)
[2020-10-24] MEDS: Insulin LISPRO 300 UNITS/3 ML VIAL SUBQ SCH ×4 (08:00→20:54)
[2020-10-24] MEDS ORDERED: Vancomycin 500 MG in 0.9 % Sodium Chloride Mini Bag 100 ML IVPB ONE (13:45)
[2020-10-24] MEDS: Norepinephrine 4 MG/254 ML IV.SOLN IVC SCH (14:30)
[2020-10-24] MEDS: Heparin 25,000UNIT/250ML 1/2NS 25,000 UNIT/250 ML IV.SOLN IVC SCH (16:48)
[2020-10-24] MEDS: rOPINIRole 0.25 MG TABLET PO SCH (20:57)
[2020-10-24] MEDS: Melatonin 3 MG TABLET PO SCH (20:57)
[2020-10-24] MEDS: *HR* Amiodarone 200 MG TABLET PO SCH (21:00)
[2020-10-25] MEDS: D5% in 0.45% NACL 1,000 ML IVC SCH (02:26)
[2020-10-25 04:11] LABS: Basophils % 0.2 %; Eosinophils % 0.1 %; Hematocrit 24.4 % (35.3-44.9); Hemoglobin 7.5 g/dL (11.5-15.4); Immature Granulocytes % 2.6 % (0-4); Lymphocytes # 0.8 K/mcL (0.6-4.6); Lymphocytes % 7.5 %; Mean Corpuscular HGB Conc 30.7 g/dL (31.6-35.5); Mean Corpuscular Hemoglobin 28.5 pg (28.0-33.3); Mean Corpuscular Volume 92.8 fL (83.0-100.0); Mean Platelet Volume 9.7 fL (9.4-12.4); Monocytes # 0.5 K/mcL (0.0-1.3); Monocytes % 4.9 %; Neutrophils # 9.4 K/mcL (1.6-8.9); Platelet Count 205 K/mcL (140-400); Red Blood Count 2.63 M/mcL (3.82-4.97); Red Cell Distribution Width 15.5 % (11.5-14.5); Segmented Neutrophils % 84.7 %; White Blood Count 11.1 K/mcL (4.3-11.1)
[2020-10-25 04:20] LABS: INR 1.5; Prothrombin Time 17.3 Seconds (9.4-12.1)
[2020-10-25 04:35] LABS: VBG Ionized Calcium 1.25 mmol/L (1.15-1.35)
[2020-10-25 04:35] LABS: Calcium 9.3 mg/dL (8.6-10.3); Magnesium 2.4 mg/dL (1.6-2.6); Phosphorous 3.2 mg/dL (2.7-4.5); Potassium 4.3 mEq/L (3.5-5.1)
[2020-10-25] MEDS: Insulin LISPRO 300 UNITS/3 ML VIAL SUBQ SCH ×3 (08:19→21:32)
[2020-10-25] MEDS: Piperacillin/Tazobactam 3.375 GM in 0.9 % Sodium Chloride Mini Bag 100 ML IVPB SCH ×2 (08:20→16:33)
[2020-10-25] MEDS: Fluticasone Propionate Nasal 50 MCG/SPRAY BOTTLE NS SCH (08:21)
[2020-10-25] MEDS: *HR* Amiodarone 200 MG TABLET PO SCH (08:21)
[2020-10-25] MEDS: Sennosides/Docusate Sodium TABLET PO SCH (08:23)
[2020-10-25] MEDS: Renal Vitamin 1 CAP CAPSULE PO SCH (08:23)
[2020-10-25] MEDS ORDERED: Aspirin 81 MG TAB.CHEW PO SCH (09:00)
[2020-10-25] MEDS ORDERED: Heparin 1,000 UNITS/500 mL 500 ML ONE (10:30)
[2020-10-25] MEDS ORDERED: 0.9 % Sodium Chloride 250 ML ONE (11:29)
[2020-10-25] MEDS ORDERED: polyethylene glycoL 3350 17 GM POWD.PACK PO PRN (12:12)
[2020-10-25] MEDS ORDERED: *HR* Alteplase (Cathflo) 2 MG VIAL IVP PRN (12:12)
[2020-10-25] MEDS ORDERED: Ondansetron ODT 4 MG TAB.RAPDIS PO PRN (12:12)
[2020-10-25] MEDS ORDERED: Acetaminophen 325 MG TABLET PO PRN (12:12)
[2020-10-25] MEDS ORDERED: Bisacodyl 10 MG RECTAL SUPPOSITORY RC PRN (12:12)
[2020-10-25] MEDS ORDERED: Naloxone 0.4 MG/ML INJ IVP PRN (12:12)
[2020-10-25] MEDS ORDERED: Calcium Gluconate 1gm/50mL 1 GM/50 ML BAG IVPB PRN (12:12)
[2020-10-25] MEDS ORDERED: Potassium Chloride 40 MEQ/200 ML BAG IVPB PRN (12:12)
[2020-10-25] MEDS ORDERED: 0.9 % Sodium Chloride 1,000 ML PRIME SCH (12:12)
[2020-10-25] MEDS: rOPINIRole 0.25 MG TABLET PO SCH (20:39)
[2020-10-25] MEDS: Melatonin 3 MG TABLET PO SCH (20:39)
[2020-10-25 22:23] LABS: Hepatitis B Surface Antibody < 3.10 mIU/mL
[2020-10-25 22:34] LABS: Hepatitis B Surface Antigen Nonreactive (Nonreactive)
[2020-10-26] MEDS: Piperacillin/Tazobactam 3.375 GM in 0.9 % Sodium Chloride Mini Bag 100 ML IVPB SCH ×4 (00:15→23:49)
[2020-10-26 05:15] LABS: Basophils % 0.3 %; Eosinophils # 0.1 K/mcL (0.0-0.6); Eosinophils % 0.5 %; Hematocrit 26.8 % (35.3-44.9); Hemoglobin 8.4 g/dL (11.5-15.4); Lymphocytes # 0.8 K/mcL (0.6-4.6); Lymphocytes % 7.9 %; Mean Corpuscular HGB Conc 31.3 g/dL (31.6-35.5); Mean Corpuscular Hemoglobin 28.7 pg (28.0-33.3); Mean Corpuscular Volume 91.5 fL (83.0-100.0); Mean Platelet Volume 9.7 fL (9.4-12.4); Monocytes # 0.6 K/mcL (0.0-1.3); Monocytes % 5.6 %; Neutrophils # 8.3 K/mcL (1.6-8.9); Platelet Count 192 K/mcL (140-400); Red Blood Count 2.93 M/mcL (3.82-4.97); Red Cell Distribution Width 16.3 % (11.5-14.5); Segmented Neutrophils % 81.7 %; White Blood Count 10.1 K/mcL (4.3-11.1)
[2020-10-26 05:31] LABS: Calcium 9.4 mg/dL (8.6-10.3); Potassium 4.2 mEq/L (3.5-5.1)
[2020-10-26] MEDS ORDERED: *HR* Heparin 10,000 UNIT/10 ML VIAL IV PRN (07:48)
[2020-10-26] MEDS ORDERED: 0.9 % Sodium Chloride 250 ML IVC PRN (07:48)
[2020-10-26] MEDS ORDERED: 0.9 % Sodium Chloride 1,000 ML PRIME SCH (08:00)
[2020-10-26] MEDS: *HR* Amiodarone 200 MG TABLET PO SCH (08:16)
[2020-10-26] MEDS: Sennosides/Docusate Sodium TABLET PO SCH (08:16)
[2020-10-26] MEDS: Renal Vitamin 1 CAP CAPSULE PO SCH (08:17)
[2020-10-26] MEDS: Aspirin 81 MG TAB.CHEW PO SCH (08:17)
[2020-10-26] MEDS: Insulin LISPRO 300 UNITS/3 ML VIAL SUBQ SCH ×4 (08:17→21:34)
[2020-10-26] MEDS: Fluticasone Propionate Nasal 50 MCG/SPRAY BOTTLE NS SCH (08:18)
[2020-10-26] MEDS ORDERED: Heparin 1,000 UNITS/500 mL 500 ML ONE (09:50)
[2020-10-26] MEDS ORDERED: Lidocaine/EPI 1:100k 1% 50 ML VIAL ONE (09:50)
[2020-10-26] MEDS ORDERED: *HR* Heparin 5,000 UNIT/ML VIAL ONE (10:07)
[2020-10-26] MEDS: Melatonin 3 MG TABLET PO SCH (21:59)
[2020-10-26] MEDS: rOPINIRole 0.25 MG TABLET PO SCH (21:59)
[2020-10-26] MEDS ORDERED: 0.9 % Sodium Chloride 500 ML IVC ONE (22:28)
[2020-10-26] MEDS ORDERED: *HR* Metoprolol 5 MG/5 ML VIAL IVP ONE (22:28)
[2020-10-26 23:05] LABS: Hematocrit 26.6 % (35.3-44.9); Hemoglobin 8.3 g/dL (11.5-15.4)
[2020-10-27] MEDS ORDERED: 0.9 % Sodium Chloride 500 ML IVC ONE (00:09)
[2020-10-27] MEDS ORDERED: 0.9 % Sodium Chloride 1,000 ML IVC ONE ×2 (01:39→16:57)
[2020-10-27 03:50] LABS: Basophils % 0.2 %; Eosinophils % 0.4 %; Hematocrit 25.5 % (35.3-44.9); Hemoglobin 7.9 g/dL (11.5-15.4); Immature Granulocytes % 3.6 % (0-4); Lymphocytes # 0.6 K/mcL (0.6-4.6); Lymphocytes % 6.9 %; Mean Corpuscular Hemoglobin 28.6 pg (28.0-33.3); Mean Corpuscular Volume 92.4 fL (83.0-100.0); Mean Platelet Volume 10.1 fL (9.4-12.4); Monocytes # 0.4 K/mcL (0.0-1.3); Monocytes % 4.4 %; Neutrophils # 7.9 K/mcL (1.6-8.9); Platelet Count 178 K/mcL (140-400); Red Blood Count 2.76 M/mcL (3.82-4.97); Red Cell Distribution Width 16.2 % (11.5-14.5); Segmented Neutrophils % 84.5 %; White Blood Count 9.3 K/mcL (4.3-11.1)
[2020-10-27 04:08] LABS: % Iron Saturation 29 % (15-50); Calcium 8.9 mg/dL (8.6-10.3); Iron 48 mcg/dL (50-170); Potassium 3.4 mEq/L (3.5-5.1); Transferrin 118 mg/dL (203-362)
[2020-10-27 04:31] LABS: Folate 20.4 ng/mL (3.0-16.0)
[2020-10-27 04:34] LABS: Ferritin > 1500 ng/mL (10-120)
[2020-10-27] MEDS: Sennosides/Docusate Sodium TABLET PO SCH (07:46)
[2020-10-27] MEDS: Renal Vitamin 1 CAP CAPSULE PO SCH (07:46)
[2020-10-27] MEDS: Piperacillin/Tazobactam 3.375 GM in 0.9 % Sodium Chloride Mini Bag 100 ML IVPB SCH ×3 (07:48→23:11)
[2020-10-27] MEDS: *HR* Amiodarone 200 MG TABLET PO SCH (08:03)
[2020-10-27] MEDS: Aspirin 81 MG TAB.CHEW PO SCH (08:03)
[2020-10-27] MEDS: Fluticasone Propionate Nasal 50 MCG/SPRAY BOTTLE NS SCH (08:08)
[2020-10-27] MEDS: Insulin LISPRO 300 UNITS/3 ML VIAL SUBQ SCH ×4 (08:08→21:17)
[2020-10-27] MEDS ORDERED: 0.9 % Sodium Chloride 1,000 ML ONE (17:01)
[2020-10-27] MEDS: rOPINIRole 0.25 MG TABLET PO SCH (20:02)
[2020-10-27] MEDS: Melatonin 3 MG TABLET PO SCH (20:03)
[2020-10-28 00:48] LABS: ABG Base Excess 1 mEq/L (-2 to 3); ABG HCO3 26 mEq/L (21-27); ABG Oxygen Saturation 94 % (95-98); ABG PCO2 40 mmHg (35-45); ABG PH 7.42 pH Units (7.32-7.45); ABG PO2 68 mmHg (85-104); ABG TCO2 27 mEq/L (20-26)
[2020-10-28 01:11] LABS: Basophils % 0.2 %; Eosinophils # 0.1 K/mcL (0.0-0.6); Hemoglobin 7.9 g/dL (11.5-15.4); Immature Granulocytes % 2.8 % (0-4); Lymphocytes # 0.8 K/mcL (0.6-4.6); Lymphocytes % 7.7 %; Mean Corpuscular HGB Conc 30.4 g/dL (31.6-35.5); Mean Corpuscular Hemoglobin 28.3 pg (28.0-33.3); Mean Corpuscular Volume 93.2 fL (83.0-100.0); Mean Platelet Volume 10.1 fL (9.4-12.4); Monocytes # 0.5 K/mcL (0.0-1.3); Monocytes % 4.7 %; Neutrophils # 8.8 K/mcL (1.6-8.9); Platelet Count 179 K/mcL (140-400); Red Blood Count 2.79 M/mcL (3.82-4.97); Red Cell Distribution Width 16.2 % (11.5-14.5); Segmented Neutrophils % 83.6 %; White Blood Count 10.5 K/mcL (4.3-11.1)
[2020-10-28 01:26] LABS: Calcium 8.9 mg/dL (8.6-10.3); Magnesium 2.1 mg/dL (1.6-2.6); Phosphorous 4.3 mg/dL (2.7-4.5); Potassium 3.7 mEq/L (3.5-5.1)
[2020-10-28 01:29] LABS: Troponin I 4.71 ng/mL (< 0.04)
[2020-10-28 01:32] LABS: Calcium 9.1 mg/dL (8.6-10.3); Phosphorous 4.3 mg/dL (2.7-4.5); Potassium 3.7 mEq/L (3.5-5.1)
[2020-10-28 01:46] LABS: Estimated Average Glucose 137 mg/dl; Hemoglobin A1C 6.4 %
[2020-10-28] MEDS: Insulin LISPRO 300 UNITS/3 ML VIAL SUBQ SCH ×2 (07:23→12:20)
[2020-10-28] MEDS: Piperacillin/Tazobactam 3.375 GM in 0.9 % Sodium Chloride Mini Bag 100 ML IVPB SCH (08:22)
[2020-10-28] MEDS: Sennosides/Docusate Sodium TABLET PO SCH (08:25)
[2020-10-28] MEDS: *HR* Amiodarone 200 MG TABLET PO SCH (08:26)
[2020-10-28] MEDS: Aspirin 81 MG TAB.CHEW PO SCH (08:26)
[2020-10-28] MEDS: Renal Vitamin 1 CAP CAPSULE PO SCH (08:26)
[2020-10-28] MEDS: Fluticasone Propionate Nasal 50 MCG/SPRAY BOTTLE NS SCH (08:55)
[2020-10-28] MEDS ORDERED: Saline Nasal Spray 44 ML BOTTLE NS PRN (08:57)
[2020-10-28] MEDS: Chlorhexidine Rinse 15 ML MOUTHWASH MM SCH ×2 (10:26→19:37)
[2020-10-28] MEDS: Artificial Tears SOLN 15 ML BOTTLE BOTH EYES SCH ×2 (10:26→19:40)
[2020-10-28] MEDS ORDERED: *HR* FentaNYL (PF) 100 MCG/2 ML VIAL IVP PRN (14:11)
[2020-10-28] MEDS ORDERED: Atropine 1% Opth Drops 100 DROP/5 ML BOTTLE SL PRN (14:15)
[2020-10-28] MEDS: rOPINIRole 0.25 MG TABLET PO SCH (19:38)
[2020-10-28] MEDS: Melatonin 3 MG TABLET PO SCH (19:38)
[2020-10-28 19:42] VITALS: BP 114/73
[2020-10-29 02:53] LABS: Basophils % 0.1 %; Eosinophils # 0.1 K/mcL (0.0-0.6); Eosinophils % 1.3 %; Hematocrit 25.8 % (35.3-44.9); Hemoglobin 7.7 g/dL (11.5-15.4); Immature Granulocytes % 2.2 % (0-4); Lymphocytes # 1.1 K/mcL (0.6-4.6); Lymphocytes % 10.8 %; Mean Corpuscular HGB Conc 29.8 g/dL (31.6-35.5); Mean Corpuscular Hemoglobin 28.7 pg (28.0-33.3); Mean Corpuscular Volume 96.3 fL (83.0-100.0); Mean Platelet Volume 9.9 fL (9.4-12.4); Monocytes # 0.5 K/mcL (0.0-1.3); Monocytes % 4.8 %; Platelet Count 193 K/mcL (140-400); Red Blood Count 2.68 M/mcL (3.82-4.97); Red Cell Distribution Width 16.6 % (11.5-14.5); Segmented Neutrophils % 80.8 %; White Blood Count 9.8 K/mcL (4.3-11.1)
[2020-10-29 03:10] LABS: Calcium 8.8 mg/dL (8.6-10.3); Magnesium 2.1 mg/dL (1.6-2.6); Phosphorous 5.2 mg/dL (2.7-4.5)
[2020-10-29] MEDS ORDERED: 0.9 % Sodium Chloride 2,000 ML ONE (07:12)
[2020-10-29] MEDS: Sennosides/Docusate Sodium TABLET PO SCH (09:39)
[2020-10-29] MEDS: Chlorhexidine Rinse 15 ML MOUTHWASH MM SCH (09:39)
[2020-10-29] MEDS: Renal Vitamin 1 CAP CAPSULE PO SCH (09:39)
== END 2020-10-29 11:45 | disposition hospice, inpatient (51) | DRG 871 ==
LOC: EMEROOARM 09:49 → SUATTDRO 15:30 → ICNU 17:15 → 2ANU 10-25 13:38 → ICNU 10-27 22:06 → 2NNU 10-28 11:14 → 2ANU 10-28 18:41
PROVIDERS: ADMIT Family Medicine; ATTEND Internal Medicine

== ENCOUNTER 2020-10-29 10:34 | Inpatient (IN) ==
[2020-10-29] MEDS ORDERED: Ondansetron 4 MG/2 ML VIAL IVP PRN (11:15)
[2020-10-29] MEDS ORDERED: Acetaminophen 325 MG TABLET PO PRN (11:15)
[2020-10-29] MEDS ORDERED: Ipratropium/Albuterol Neb 3 ML IH PRN (11:15)
[2020-10-29] MEDS ORDERED: *HR* FentaNYL (PF) 100 MCG/2 ML VIAL IVP PRN (11:23)
[2020-10-29] MEDS: *HR* FentaNYL PATCH 50 MCG PATCH TD SCH (12:46)
[2020-10-29] MEDS: Melatonin 3 MG TABLET PO SCH (20:08)
[2020-10-30] MEDS: Melatonin 3 MG TABLET PO SCH (20:55)
[2020-10-31] MEDS: Melatonin 3 MG TABLET PO SCH (22:13)
[2020-11-01] MEDS: *HR* LORazepam Oral Conc 2 MG/ML PO PRN ×2 (04:20→14:00)
[2020-11-01] MEDS: *HR* FentaNYL PATCH 50 MCG PATCH TD SCH (13:40)
[2020-11-01] MEDS: Nystatin POWDER 30 GM BOTTLE TP SCH (17:23)
[2020-11-01] MEDS: Atropine 1% Opth Drops 100 DROP/5 ML BOTTLE SL PRN ×2 (20:46→23:01)
[2020-11-01] MEDS: Melatonin 3 MG TABLET PO SCH (20:51)
[2020-11-02] MEDS: *HR* LORazepam Oral Conc 2 MG/ML PO PRN ×2 (08:46→16:39)
[2020-11-02] MEDS: Nystatin POWDER 30 GM BOTTLE TP SCH ×2 (09:16→20:55)
[2020-11-02 19:28] VITALS: BP 96/58
[2020-11-02] MEDS: Melatonin 3 MG TABLET PO SCH (20:54)
[2020-11-03] MEDS: *HR* LORazepam Oral Conc 2 MG/ML PO PRN ×2 (05:57→11:10)
[2020-11-03] MEDS: Atropine 1% Opth Drops 100 DROP/5 ML BOTTLE SL PRN ×4 (09:26→21:26)
[2020-11-03] MEDS: Nystatin POWDER 30 GM BOTTLE TP SCH ×2 (09:31→21:26)
[2020-11-03] MEDS ORDERED: Scopolamine Patch 1.5 MG PATCH.TD72 TD SCH (10:00)
[2020-11-03] MEDS ORDERED: *HR* FentaNYL (PF) 100 MCG/2 ML VIAL IVP PRN (11:05)
[2020-11-03] MEDS ORDERED: Acetaminophen 650 MG RECTAL SUPP RC PRN (11:46)
[2020-11-03] MEDS ORDERED: Haloperidol Lactate 5 MG/ML VIAL IVP PRN (11:58)
== END 2020-11-03 21:51 | disposition expired | DRG 951 ==
LOC: 2ANU 12:24
PROVIDERS: ADMIT Internal Medicine Hospice and Palliative Medicine; ATTEND Internal Medicine Hospice and Palliative Medicine